=== PATIENT | male | born 1975 | race African-American/Black ===

== ENCOUNTER 2016-12-18 22:54 | Emergency (ER) | payer BC ==
[~2016-12-18] VITALS: Ht 177.8 cm; Wt 106.6 kg
--- NOTE | ~2016-12-18 | CT2 ---
[facility] A Service of [facility] / [facility] RADIOLOGY TEXT RESULTS PATIENT: KRISTAN YAN LOCATION: SED : 79 UNIT #: [id number] AGE: [address]: Mohit Do MD SEX: M ORDER DR: [id number] [place] [id number] E MR#: [id number] Acc #: [id number] NAME: KRISTAN YAN : 1975 SEX: M STUDY DATE/TIME: 12/19/2016 0143 UNIT: SED ROOM: STUDY DESCRIPTION: CT Abd and Pelv W Cont Attending Physician: Mohit Do M.D. Ordering Physician: Mohit Do M.D. MEDICAL IMAGING REPORT This report is preliminary unless electronic signature is present. EXAM Abdomen and pelvis CT, 12/19 at 0143. INDICATION Severe lower abdominal pain for 3 days. History of diverticulitis. TECHNIQUE Axial images were obtained through the abdomen and pelvis following IV contrast administration. Multiplanar reformats were obtained. This CT exam was performed with one or more of the following radiation dose reduction techniques: automatic exposure control, adjustment of mA and/or kV according to patient size, and iterative reconstruction. COMPARISON No comparison. FINDINGS ABDOMEN: Minimal atelectasis noted in the lung bases. Gallbladder unremarkable. Solid organs are normal. No free fluid. Unopacified GI tract is normal. PELVIS: The appendix is normal. There is sigmoid diverticulosis. Additionally, there is abnormal wall thickening in the sigmoid colon in the proximal third which is probably secondary to acute diverticulitis, although this could also reflect segmental colitis. Unopacified GI tract otherwise unremarkable. No abscess is seen. Urinary bladder is normal. IMPRESSION 1. Wall thickening and adjacent fat stranding in the proximal third of the sigmoid colon. This is probably due to diverticulitis but could also reflect segmental colitis. No abscess is seen. The remainder of the GI tract, including the appendix is within normal limits. [facility] A Service [facility] RADIOLOGY TEXT RESULTS PATIENT: KRISTAN YAN LOCATION: SED : 77 UNIT #: [id number] AGE: [address]: Mohit Do MD SEX: M ORDER DR: 2. The remainder of the abdomen and pelvis CT is normal. Dictated by... Adriel Gray Jr., M.D. THIS IS AN ELECTRONICALLY VERIFIED REPORT Adriel Gray Jr., M.D. at 12/20/2016 5:52 AM ALETHA/rock TD: 12/19/2016 10:14 JOB #: [id number] MEDICAL IMAGING REPORT Page 1 of 1
[2016-12-19 01:19] LABS: BASOPHIL% 0.4 % (0-2.5); EOSINOPHIL# 0.1 X10e3 (0-0.7); EOSINOPHIL% 0.7 % (0.0-7.0); HEMOGLOBIN 15.5 gm/dL (13.0-16.0); LYMPHOCYTE% 16.9 % (17.0-45.0); MEAN CELL VOLUME 91.6 FL (83-96); MEAN CORPUSCULAR HEMOGLOBIN 32.2 PG (28-34); MEAN CORPUSCULAR HGB CONC 35.2 g/dL (30-36); MEAN PLATELET VOLUME 7.2 FL (6.5-11.5); MONOCYTE# 1.1 X10e3 (0-1.0); MONOCYTE% 8.9 % (3.0-12.0); NEUTROPHIL# 8.7 X10e3 (1.5-7.1); NEUTROPHIL% 73.1 % (40-75); PLATELET COUNT 194 X10e3 (140-420); RED BLOOD COUNT 4.81 X10e (3.90-5.60); RED CELL DISTRIBUTION WIDTH 13.2 % (11.0-15.5); WHITE BLOOD COUNT 11.9 X10e3 (4.0-10.5)
[2016-12-19 01:20] LABS: DIFF IND NO
[2016-12-19 01:35] LABS: ALBUMIN SERUM 3.9 g/dL (3.5-5.0); BILIRUBIN, DIRECT 0.2 mg/dL (0.0-0.2); BILIRUBIN,INDIRECT 1.7 mg/dL (0.0-0.9); BILIRUBIN,TOTAL 1.9 mg/dL (0.2-2.0); BUN/CREATININE RATIO 10.83; CALCIUM SERUM 8.9 mg/dL (8.4-10.2); CREATININE SERUM 1.2 mg/dL (0.6-1.4); GLOM FILT RATE Estimated 87.8 mL/min (>60); POTASSIUM 3.7 mmol/L (3.5-5.1); PROTEIN TOTAL SERUM 7.3 g/dL (6.0-8.3)
== END 2016-12-19 02:48 | disposition home or self-care (01) ==
LOC: SED 22:54
PROVIDERS: Emergency Medicine
DX: K57.32 Diverticulitis of large intestine without perforation or abscess without bleeding (principal)
CPT/HCPCS: 36415; 74177; 80048; 80076; 83690; 85025; 96361; 96374; 99284; J1885; Q9967